=== PATIENT | male | born 1990 | race Caucasian/White ===

== ENCOUNTER 2018-08-21 16:47 | Emergency (ER) | payer MEDICAID ==
[~2018-08-21] VITALS: Ht 175.3 cm; Wt 81.8 kg
[2018-08-21 16:53] VITALS: Ht 175.3 cm; Wt 81.8 kg
[2018-08-21 17:40] LABS: microscopic required? NO
[2018-08-21 17:47] LABS: BASOPHIL % 0.3 % (0-2); PLATELET COUNT 253 x10^3mcL (130-400); RED CELL DISTRIBUTION WIDTH 12.4 % (11.5-14.5)
[2018-08-21 17:54] LABS: CALCIUM 8.8 mg/dL (8.5-10.1); CHLORIDE SERUM 104 mmol/L (98-107); CREATININE SERUM 0.7 mg/dL (0.7-1.3); GFR1 > 60 mL/min; GLUCOSE SERUM 92 mg/dL (74-106); POTASSIUM SERUM 3.9 mmol/L (3.5-5.1); SODIUM SERUM 142 mmol/L (136-145)
[2018-08-21 17:54] LABS: urine erythrocyte NEGATIVE (NEGATIVE)
[2018-08-21 17:58] LABS: ALBUMIN 3.9 g/dL (3.4-5.0); ALKALINE PHOSPHATASE 53 U/L (46-116); ALT/SGPT 34 U/L (16-63); AST/SGOT 10 U/L (15-37); BILIRUBIN TOTAL 0.3 mg/dL (0.20-1.00); TOTAL PROTEIN, SERUM 6.8 g/dL (6.4-8.2)
[2018-08-21 22:15] VITALS: BP 128/80
== END 2018-08-21 22:15 | disposition home or self-care (01) ==
LOC: ED 16:47
PROVIDERS: Specialist
DX: R30.0 Dysuria (principal); R35.0 Frequency of micturition; G89.29 Other chronic pain; M54.5 Low back pain
CPT/HCPCS: 36415; 87491; 87591; Q0162

== ENCOUNTER 2019-08-22 08:00 | Emergency (ER) | payer MEDICAID ==
[~2019-08-22] VITALS: Ht 172.7 cm; Wt 78.9 kg
[2019-08-22 08:11] VITALS: Ht 172.7 cm; Wt 78.9 kg
[2019-08-22 09:19] VITALS: BP 127/81
== END 2019-08-22 09:19 | disposition home or self-care (01) ==
LOC: ED 08:00
DX: F15.10 Other stimulant abuse, uncomplicated (principal); F19.10 Other psychoactive substance abuse, uncomplicated; L01.00 Impetigo, unspecified
CPT/HCPCS: 90715

== ENCOUNTER 2019-08-22 13:30 | Emergency (ER) | payer MEDICAID ==
[~2019-08-22] VITALS: Ht 175.3 cm; Wt 72.6 kg
[2019-08-22 13:41] VITALS: Ht 175.3 cm; Wt 72.6 kg
[2019-08-22 14:00] VITALS: BP 141/98
== END 2019-08-22 14:00 | disposition home or self-care (01) ==
LOC: ED 13:30
DX: R04.0 Epistaxis (principal); F15.10 Other stimulant abuse, uncomplicated; F22 Delusional disorders; F11.10 Opioid abuse, uncomplicated